=== PATIENT | male | born 1995 | race Caucasian/White ===

== ENCOUNTER 2018-10-12 20:43 | Emergency (ER) | payer BC, OTHER ==
[~2018-10-12] VITALS: Ht 172.7 cm; Wt 64.4 kg
== END 2018-10-12 22:04 | disposition home or self-care (01) ==
LOC: ER 20:43
DX: S61.512A Laceration without foreign body of left wrist, initial encounter (principal); W22.8XXA Striking against or struck by other objects, initial encounter
CPT/HCPCS: 12001; 90471; 90714; 99282-25

== ENCOUNTER 2022-10-09 14:15 | Emergency (ER) | payer OTHER ==
[~2022-10-09] VITALS: Ht 172.7 cm; Wt 65.8 kg
[2022-10-09 14:53] VITALS: BP 134/64
== END 2022-10-09 17:55 | disposition home or self-care (01) ==
LOC: ER 14:15
DX: S91.312A Laceration without foreign body, left foot, initial encounter (principal); W22.8XXA Striking against or struck by other objects, initial encounter; Z23 Encounter for immunization
CPT/HCPCS: 12002; 90471; 90714; 90715; 99283-25